=== PATIENT | male | born 1965 | race African-American/Black ===

== ENCOUNTER 2017-10-17 08:36 | Emergency (ER) | payer MEDICAID, OTHER ==
[~2017-10-17] VITALS: Ht 165.1 cm; Wt 79.3 kg
[2017-10-17] MEDS ORDERED: ALBUTEROL/IPRATROPIUM 2.5MG/0.5MG, 3 ML NPPB PRN (09:30)
[2017-10-17] MEDS ORDERED: ALBUTEROL/IPRATROPIUM 2.5MG/0.5MG, 3 ML ONE (10:55)
[2017-10-17 11:35] VITALS: BP 134/72
== END 2017-10-17 11:52 | disposition home or self-care (01) ==
LOC: ED 10:46
DX: B34.9 Viral infection, unspecified (principal); F17.210 Nicotine dependence, cigarettes, uncomplicated; I10 Essential (primary) hypertension
CPT/HCPCS: 71020; 94640; 99284; J7620

== ENCOUNTER 2018-02-03 07:48 | Emergency (ER) | payer MEDICAID ==
[~2018-02-03] VITALS: Ht 165.1 cm; Wt 78.0 kg
[2018-02-03 07:50] VITALS: BP 135/77
[2018-02-03] MEDS ORDERED: DIPH,PERTUSS(ACELL),TET VAC/PF 0.5 ML IM-VACC ONE ×2 (09:00→09:03)
[2018-02-03] MEDS ORDERED: BACITRACIN ZINC OINT 500U/GM, 0.9 GM ONE (09:03)
== END 2018-02-03 10:04 | disposition home or self-care (01) ==
LOC: ED 09:58
DX: L02.415 Cutaneous abscess of right lower limb (principal); I10 Essential (primary) hypertension; F17.210 Nicotine dependence, cigarettes, uncomplicated; Z59.0 Homelessness
CPT/HCPCS: 90715; 96372; 99283